=== PATIENT | female | born 1990 | race African-American/Black ===

== ENCOUNTER 2021-09-02 13:08 | Emergency (ER) | payer OTHER ==
[~2021-09-02] VITALS: Ht 167.6 cm; Wt 83.0 kg
[2021-09-02] MEDS ORDERED: ENBRACE HR SOF1 EACH PO (13:24)
[2021-09-02] MEDS ORDERED: APAP W/CODEINE1 TA2 PO (13:25)
[2021-09-02 17:30] VITALS: BP 117/86
== END 2021-09-02 17:30 | disposition short-term general hospital (02) ==
LOC: ER 13:08
DX: O98.513 Other viral diseases complicating pregnancy, third trimester (principal); U07.1 COVID-19; R10.2 Pelvic and perineal pain; Z3A.34 34 weeks gestation of pregnancy; Z79.899 Other long term (current) drug therapy